=== PATIENT | female | born 1960 | race Caucasian/White ===

== ENCOUNTER 2021-05-05 22:54 | Inpatient (IN) | payer MEDICARE ==
[~2021-05-05] VITALS: Ht 152.4 cm; Wt 52.0 kg
[2021-05-05 22:57] VITALS: BP 167/62
[2021-05-05 23:22] LABS: HEMATOCRIT 28.6 % (37.0-47.0); MEAN CELL VOLUME 97.6 fl (81.0-99.0); MEAN CORPUSCULAR HGB CONC 30.8 g/dl (33.0-37.0); MEAN PLATELET VOLUME 8.9 fl (9.6-12.3); NUCLEATED RED BLOOD CELL 0.2 % (0.0-0.0); PLATELET COUNT AUTOMATED 267 10*3/uL (130-400); RED BLOOD COUNT 2.93 10*6/uL (4.10-5.10); RED CELL DISTRI WIDTH 13.1 % (0-14.5); WHITE BLOOD COUNT 15.7 10*3/uL (4.8-10.8)
[2021-05-05 23:38] LABS: ALBUMIN 2.2 gm/dl (3.1-4.5); CREATININE 5.75 mg/dL (0.55-1.02); POTASSIUM 4.4 mmol/L (3.5-5.1); TOTAL PROTEIN 5.8 gm/dL (6.4-8.2)
[2021-05-05 23:41] LABS: PLATELET SUFFICIENCY NORMAL (NORMAL); TOTAL CELLS COUNTED 96 #CELLS
[2021-05-05] MEDS ORDERED: TRAZODONE100 MG PO (23:58)
[2021-05-05] MEDS ORDERED: PROVENTIL HFA6.7 GM INH (23:58)
[2021-05-05] MEDS ORDERED: METOPROLOL TAR100 M1 PO (23:58)
[2021-05-06 05:55] VITALS: BP 160/65
[2021-05-06 06:27] LABS: HEMATOCRIT 29.5 % (37.0-47.0); MEAN CELL VOLUME 99.3 fl (81.0-99.0); MEAN CORPUSCULAR HGB CONC 30.2 g/dl (33.0-37.0); MEAN PLATELET VOLUME 9.1 fl (9.6-12.3); NUCLEATED RED BLOOD CELL 0.1 % (0.0-0.0); PLATELET COUNT AUTOMATED 268 10*3/uL (130-400); RED BLOOD COUNT 2.97 10*6/uL (4.10-5.10); RED CELL DISTRI WIDTH 13.2 % (0-14.5); WHITE BLOOD COUNT 16.9 10*3/uL (4.8-10.8)
[2021-05-06 06:41] LABS: CREATININE 5.45 mg/dL (0.55-1.02); POTASSIUM 4.8 mmol/L (3.5-5.1)
[2021-05-06 07:30] VITALS: BP 188/61
[2021-05-06 07:34] LABS: PLATELET SUFFICIENCY NORMAL (NORMAL); POLYCHROMASIA SLIGHT; TOTAL CELLS COUNTED 100 #CELLS
[2021-05-06 07:35] LABS: SCHISTOCYTES FEW
[2021-05-06] MEDS ORDERED: HYDRALAZINE HYD50 MG PO (07:44)
[2021-05-06] MEDS ORDERED: LOPRESSOR100 M1 PO (07:45)
[2021-05-06] MEDS ORDERED: AMLODIPINE BESYL5 MG PO (07:45)
[2021-05-06] MEDS ORDERED: TORSEMIDE100 MG PO (07:46)
[2021-05-06 08:43] VITALS: BP 172/58
[2021-05-06 12:00] VITALS: BP 175/60
[2021-05-06 17:00] VITALS: BP 147/51
[2021-05-06 20:00] VITALS: BP 156/52
[2021-05-07] VITALS: BP 177/59
[2021-05-07 06:38] LABS: HEMATOCRIT 27.8 % (37.0-47.0); MEAN CELL VOLUME 99.6 fl (81.0-99.0); MEAN CORPUSCULAR HGB 29.7 pg (27.0-31.0); MEAN CORPUSCULAR HGB CONC 29.9 g/dl (33.0-37.0); MEAN PLATELET VOLUME 9.3 fl (9.6-12.3); NUCLEATED RED BLOOD CELL 0.1 % (0.0-0.0); PLATELET COUNT AUTOMATED 245 10*3/uL (130-400); RED BLOOD COUNT 2.79 10*6/uL (4.10-5.10); RED CELL DISTRI WIDTH 13.1 % (0-14.5); WHITE BLOOD COUNT 17.5 10*3/uL (4.8-10.8)
[2021-05-07 06:41] LABS: CREATININE 5.62 mg/dL (0.55-1.02); POTASSIUM 4.9 mmol/L (3.5-5.1)
[2021-05-07 08:00] VITALS: BP 149/45
[2021-05-07 09:33] LABS: PLATELET SUFFICIENCY NORMAL (NORMAL); POLYCHROMASIA SLIGHT; TOTAL CELLS COUNTED 100 #CELLS
[2021-05-07 11:20] VITALS: BP 140/50
[2021-05-07] MEDS ORDERED: VITAMIN D350 MC2 PO (13:37)
[2021-05-07] MEDS ORDERED: DOXYCYCLINE HY100 M3 PO (13:38)
[2021-05-07] MEDS ORDERED: PREDNISONE10 MG PO (13:38)
== END 2021-05-07 15:01 | disposition home or self-care (01) | DRG 871 ==
LOC: ED 22:54 → EDHOLD 05-06 01:08 → 5E 05-06 01:08
PROVIDERS: Internal Medicine; ADMIT Family Medicine; ATTEND Family Medicine
DX: A41.9 Sepsis, unspecified organism (principal); J96.01 Acute respiratory failure with hypoxia; J18.9 Pneumonia, unspecified organism; N18.6 End stage renal disease; E44.0 Moderate protein-calorie malnutrition; J44.1 Chronic obstructive pulmonary disease with (acute) exacerbation; J44.0 Chronic obstructive pulmonary disease with (acute) lower respiratory infection; I12.0 Hypertensive chronic kidney disease with stage 5 chronic kidney disease or end stage renal disease; D64.9 Anemia, unspecified; F17.210 Nicotine dependence, cigarettes, uncomplicated; E83.41 Hypermagnesemia; Z99.2 Dependence on renal dialysis; Z82.0 Family history of epilepsy and other diseases of the nervous system; Z83.3 Family history of diabetes mellitus; Z79.899 Other long term (current) drug therapy; Z79.51 Long term (current) use of inhaled steroids; Z68.22 Body mass index [BMI] 22.0-22.9, adult

== ENCOUNTER 2021-06-30 00:06 | Observation (INO) | payer MEDICARE ==
[~2021-06-30 00:06] MED LIST: AMLODIPINE BESYL5 MG PO; DOXYCYCLINE HY100 M3 PO; HYDRALAZINE HYD50 MG PO; LOPRESSOR100 M1 PO; METOPROLOL TAR100 M1 PO; PREDNISONE10 MG PO; PROVENTIL HFA6.7 GM INH; TORSEMIDE100 MG PO; TRAZODONE100 MG PO; VITAMIN D350 MC2 PO
[2021-06-30 00:10] VITALS: BP 159/51
[2021-06-30 01:28] LABS: BASO % 0.3 % (0.0-1.0); HEMATOCRIT 29.2 % (37.0-47.0); LYMPH # 0.4 10*3/uL (1.3-4.4); LYMPH % 9.6 % (27.0-41.0); MEAN CORPUSCULAR HGB 29.5 pg (27.0-31.0); MEAN CORPUSCULAR HGB CONC 30.1 g/dl (33.0-37.0); MEAN PLATELET VOLUME 9.7 fl (9.6-12.3); MONO # 0.2 10*3/uL (0.1-1.0); MONO % 5.6 % (3.0-9.0); NEUT # 3.3 10*3/uL (2.3-7.9); NEUT % 83.2 % (47.0-73.0); PLATELET COUNT AUTOMATED 131 10*3/uL (130-400); RED BLOOD COUNT 2.98 10*6/uL (4.10-5.10)
[2021-06-30 01:40] LABS: CREATININE 7.02 mg/dL (0.55-1.02); POTASSIUM 4.8 mmol/L (3.5-5.1)
[2021-06-30 02:56] VITALS: BP 138/46
[2021-06-30] MEDS ORDERED: METOPROLOL SUCC25 M2 PO (03:31)
[2021-06-30 06:31] VITALS: BP 155/51
[2021-06-30 11:35] VITALS: BP 162/58
[2021-06-30 13:22] VITALS: BP 152/68
[2021-06-30] MEDS ORDERED: DECADRON6 M1 PO (14:09)
[2021-06-30] MEDS ORDERED: MUCUS RELIEF600 MG PO (14:09)
[2021-06-30] MEDS ORDERED: ZITHROMAX250 MG PO (14:09)
== END 2021-06-30 22:52 | disposition home or self-care (01) ==
LOC: ED 00:06 → EDHOLD 02:05
PROVIDERS: Internal Medicine; ADMIT Internal Medicine; ATTEND Internal Medicine
DX: A41.9 Sepsis, unspecified organism (principal); J44.1 Chronic obstructive pulmonary disease with (acute) exacerbation; J18.9 Pneumonia, unspecified organism; I12.0 Hypertensive chronic kidney disease with stage 5 chronic kidney disease or end stage renal disease; N18.6 End stage renal disease; D64.9 Anemia, unspecified; Z20.822 Contact with and (suspected) exposure to COVID-19; D72.810 Lymphocytopenia; D72.819 Decreased white blood cell count, unspecified; R00.0 Tachycardia, unspecified; Z99.2 Dependence on renal dialysis; Z79.899 Other long term (current) drug therapy